=== PATIENT | female | born 1995 | race Caucasian/White ===

== ENCOUNTER 2017-06-04 13:25 | Emergency (ER) | payer OTHER ==
[~2017-06-04] VITALS: Ht 142.2 cm; Wt 38.6 kg
[2017-06-04 13:30] VITALS: Ht 142.2 cm; Wt 38.6 kg
--- NOTE | 2017-06-04 14:19 | ERD ---
ER Documentation Chief Complaint Chief Complaint headache and leg pain HPI 21y/o female patient with no significant medical history, presents to the emergency department with sister c/o gradual onset of headache, constant, that started 3 ago. The pain is dull, rated 5/10, radiated to neck. The symptoms are probably caused by stress. Aggravating factors: Unknown. Alleviating factors: Unknown. Denies fever, chills, N/V/D. No recent history of previous episodes. Treatment attempted: None. Previous evaluation: None. ROS SYSTEMIC symptoms: no fever, chills, no night sweats, no weight loss EYE symptoms: No blurred vision, no eye discharge OTOLARYNGEAL symptoms: No hearing loss. No ear pain, no sore throat CARDIOVASCULAR symptoms: No chest pain or discomfort, no palpitations. PULMONARY symptoms: No dyspnea, no cough, no wheezing. GASTROINTESTINAL symptoms: No abdominal pain, no nausea, no vomiting, no diarrhea MUSCULOSKELETAL symptoms: No arthralgias, no muscle aches. NEUROLOGY symptoms: No confusion, no syncope, no numbness or tingling. SKIN no rashes Medications Home Meds Active Scripts Hydrocodone/Acetaminophen ([place] 5-325 Tablet) 1 Each Tablet, 1 TAB PO Q6H Y for PAIN, #20 TAB Prov:HAKEEM GRUBBS MD 06/04/17 Ibuprofen* (Motrin*) 600 Mg Tab, 600 MG PO Q8, #30 TAB Prov:HAKEEM GRUBBS MD 06/04/17 Physical Exam Vitals Vital Signs Date Time Temp Pulse Resp B/P Pulse Ox O2 Delivery O2 Flow Rate FiO2 06/04/17 13:30 97.7 85 19 91/53 94 Physical Exam Patient is in no acute distress, vital signs stable. Alert and fully oriented. EYES: PERRLA, EOMI, Sclera and conjunctiva appear normal. EARS: Canals clear, tympanic membranes WNL THROAT: Normal oropharynx. NECK: Supple, No lymphadenopathy. Full ROM without pain or tenderness. HEART: RRR, no rubs, murmurs, clicks or gallops. LUNGS: Clear to auscultation. ABDOMEN: Soft, non-tender without masses or hepatosplenomegaly. EXTREMITIES: No edema bilaterally. BACK: Full ROM, no deformity, normal back exam NEURO: Cranial nerves grossly intact, no motor or sensory deficit Results 24 hrs Laboratory Tests Test 06/04/17 14:23 Bedside Urine pH (LAB) 6.0 Bedside Urine Protein (LAB) Negative Bedside Urine Glucose (UA) Negative Bedside Urine Ketones (LAB) Negative Bedside Urine Blood 1+ Bedside Urine Nitrite (LAB) Negative Bedside Urine Leukocyte Esterase (L Negative Current Medications Medications (Trade) Dose Ordered Sig/Micaela Route PRN Reason Start Time Stop Time Status Last Admin Dose Admin Acetaminophen/ Hydrocodone Bitart ([place] (5/325)) 1 tab ONCE ONCE PO 06/04/17 14:30 06/04/17 14:31 DC 06/04/17 14:23 Procedures/MDM 20y/o female patient previously, presents to the ED c/o headache for 2 days. Vital signs stable, Physical exam unremarkable, neurovascular intact. Differential diagnosis include but not limited to: Classical migraine, sinusitis , visual corrective problems, side effects of medications, dehydration, electrolyte imbalance, endocrine/autoimmune medical condition, stress, anxiety, tension headache. Low suspicion for meningitis, DAIRY TESTER tumor, cerebrovascular event.. Pertinent Data: UA: normal Physical examination and clinical presentation consistent most likely with tension headache. During the ED course the patient received treatment with [place] p.o. presenting overall improvement of the symptoms. Results and clinical impression discussed with patient who agrees with management. The patient is stable to be treated outpatient and will be discharged home with a Rx for ibuprofen and [place] Side effects of prescribed medications (headache, rash, nausea, vomiting, diarrhea) were reviewed. Side effects of prescribed opiates (drowsiness, habituation) were reviewed. Side effects of prescribed NSAID medication (GI distress, edema, bleeding, HTN) were reviewed. The patient was instructed to follow up with the primary care provider in the next 48h. If symptoms persist, worsen or new symptoms develop, then patient should return to the ED immediately. Instructions explained and given to patient in [Sami] with acknowledgment and demonstrated understanding. Disclaimer: Inadvertent spelling and grammatical errors are likely due to EHR/ dictation software use and do not reflect on the overall quality of patient care. Also, please note that the electronic time recorded on this note does not necessarily reflect the actual time of the patient encounter. Departure Diagnosis: Primary Impression: Tension headache Condition: Stable HAKEEM GRUBBS MD Jun 04, 2017 14:19
[2017-06-04 14:24] LABS: URINE BLOOD (Dip) POC 1+ (NEGATIVE)
[2017-06-04] MEDS ORDERED: HYDROCODONE/APAP (5/325) TAB PO ONE (14:30)
[2017-06-04] MEDS ORDERED: IBUP-1542 PO (14:53)
[2017-06-04] MEDS ORDERED: HYDR-906 PO (14:53)
== END 2017-06-04 15:14 | disposition home or self-care (01) ==
LOC: FTE 13:25
DX: G44.209 Tension-type headache, unspecified, not intractable (principal)
CPT/HCPCS: 81003; Z7502; Z7610; 99283

== ENCOUNTER 2017-06-17 14:46 | Emergency (ER) | END 2017-06-17 16:49 | disposition home or self-care (01) ==

== ENCOUNTER 2017-11-17 12:31 | Emergency (ER) | END 2017-11-17 13:43 | disposition home or self-care (01) ==